=== PATIENT | male | born 1945 | race Caucasian/White ===

== ENCOUNTER → 2016-08-08 | Outpatient (CLI) | payer MEDICARE, OTHER ==
[~2016-08-08] MED LIST: ALDACTONE25 MG PO; ASPIRIN EC81 MG PO; AUGMENTIN 875-1 EACH PO; COREG12.5 MG PO; GLYBURIDE5 MG PO; JANUMET 50-5001 EACH PO; LASIX20 M1 PO; LEVEMIR FL100 UNIT/1 SUB-Q; LOPRESSOR25 MG PO; NEURONTIN100 MG PO; NORVASC5 MG PO; NOVOLOG FL100 UNIT/1 SUB-Q; PRINIVIL (ZESTR20 MG PO; PROTONIX40 MG PO; THERAGRAN-M1 TAB PO; TYLENOL325 MG PO; VITAMIN B-121000 MCG PO; ZOCOR40 MG PO
== END | disposition disaster alternative care site (69) ==
LOC: LFPA 16:35
DX: R06.02 Shortness of breath (principal)

== ENCOUNTER → 2016-08-09 | Outpatient (CLI) | payer MEDICARE, OTHER ==
--- NOTE | ~2016-08-09 | ECHO ---
Transthoracic Echocardiography Report (TTE) Demographics Patient Name NAINA DAMIAN Date of Study 08/09/2016 Patient Number [id number] Visit Number [id number] Date of 1945 Room Number Gender Male Number Age 70 year(s) Referring Erica Torres Family Development Extension Specialist Tank Gamble Physician MD Aziza Lemus MD Physician Interpreting Christa Kumar Radioisotope Technologist Physician A Supervising Ordering Aziza Lemus MD, MD/P Physician Nurse Stress Correctional Case Records Supervisor Conclusions Contractility Score Summary Global Left Ventricular Hypokinesis was noted. Summary Technically difficult exam. The estimated left ventricular ejection fraction is 40-45%. The left ventricle is normal in size . Mild concentric left ventricular hypertrophy. Restrictive filling pattern (severe diastolic dysfunction). Mildly dilated right ventricle. The aortic valve is not well visualized. There is mild aortic stenosis by the Continuity Equation. The peak velocity is 2.06 m/s, the mean gradient is 9 mmHg, and the valve area based on the continuity equation is 1.26 cm2, stroke volume index is 19 ml/m2. Large pleural effusion present. Procedure Type of Study TTE procedure:2D Echocardiogram, M-Mode, Doppler , Color Doppler. Procedure Date Date: 08/09/2016 Start: 12:14 PM Study Location: Echo Lab Technical Quality: Limited visualization due to body habitus. Indications:Heart Murmur and CHF. Appropriate Use Criteria: 9 Patient Status: Routine HR: 98 bpm BP: 193/91 mmHg M-Mode/2D Measurements LV Diastolic Dimension: 5.59 cm LV Systolic Dimension: 4.32 cm LV Septum Diastolic: 1.21 cm LV PW Diastolic: 1.19 cm AO Root Dimension: 2.8 cm Cardiac Output: 4.77 l/min LA Dimension: 4 cm LVOT: 2 cm LVOT VTI: 15.5 cm RV Base: 3.08 cm LV Stroke volume: 48.67 ml RV Length: 7.67 cm TAPSE: 2.32 cm TDI-S': 9.76 cm/s Doppler Measurements AV Peak Velocity: 2.01 m/s MV Peak E-Wave: 1.45 m/s AV Peak Gradient: 16.16 mmHg AV Mean Gradient: 9 mmHg MV Mean Gradient: 5 mmHg TR Velocity:1.92 m/s Estimated PASP: 24.75 mmHg TR Gradient:14.75 mmHg Estimated RAP:10 mmHg Estimated RVSP: 25 mmHg E' Lateral Velocity: 0.13 m/s Findings Left Ventricle The left ventricle is normal in size . Mild concentric left ventricular hypertrophy. Restrictive filling pattern (severe diastolic dysfunction). Right Ventricle Mildly dilated right ventricle. Left Atrium Normal left atrial size. Right Atrium Normal right atrial size. Mitral Valve Trivial mitral regurgitation by color Doppler. Mild mitral annular calcification. Aortic Valve The aortic valve is not well visualized. There is mild aortic stenosis by the Continuity Equation. The peak velocity is 2.06 m/s, the mean gradient is 9 mmHg, and the valve area based on the continuity equation is 1.26 cm2, stroke volume index is 19 ml/m2. Tricuspid Valve Trivial tricuspid regurgitation by color Doppler. Pulmonic Valve The pulmonic valve is not well visualized. Pericardial Effusion No evidence of pericardial effusion. Miscellaneous The ascending aorta appears borderline dilated. The maximum diameter measures 3.4 cm. Pleural Effusion Large pleural effusion present. Contractility Score LV regional wall motion:(0-Non visualized 1-Normal 2-Hypokinesis 3-Akinesis 4-Dyskinesis 5-Aneurysm) Signature dtt: Elizabeth Goodwin dtd: 08/09/16 1214 Physician Self Edit
== END | disposition disaster alternative care site (69) ==
LOC: GCAR 11:50
DX: R06.02 Shortness of breath (principal); I51.7 Cardiomegaly; J90 Pleural effusion, not elsewhere classified

== ENCOUNTER 2016-10-04 08:19 | Inpatient (IN) | payer MEDICARE, OTHER ==
[~2016-10-04] VITALS: Ht 180.3 cm; Wt 143.4 kg
--- NOTE | ~2016-10-04 | CON ---
PATIENT'S NAME: NAINA DAMIAN [facility] AGE: 70 Y [address] ROOM: [place] [address] LOCATION: GPCU ADMIT DATE: 10/04/2016 Consultation DISCHARGE DATE: FAMILY PHYSICIAN: Rogelio Maldonado MD ATTENDING PHYSICIAN: CIRA ARRINGTON DATE OF CONSULTATION: 10/04/2016 REASON FOR CARDIOLOGY CONSULT: Bradycardia and congestive heart failure. HISTORY OF PRESENT ILLNESS: This is a 70-year-old male, with complaints of shortness of breath over the past 3 months, that had been slowly increasing in intensity. He also has complaints of cough with a productive mucus and to the point of intensity of cough that causes him to vomit. He also has noted redness and warmth as well as cellulitis of the right lower leg. He denies any sharp chest pain or palpitations. Last night, he did have complaints of presyncope and blurred vision while in the seated position. He also has a history of postural nocturnal dyspnea as well as orthopnea. He underwent a previous echocardiogram which showed a combined congestive heart failure with an ejection fraction of 40-45%. Overall at this time, he is sitting up quite high in bed to assist with breathing, but otherwise appears in no other acute distress and has no real complaints. He states "this is the first time I have been in the hospital ever." PAST MEDICAL HISTORY: 1. Hypertension. 2. Hypercholesterolemia. 3. Chronic systolic and diastolic congestive heart failure. 4. Diabetes mellitus type 2, poorly controlled. 5. Obesity. 6. History of ulceration to his right great toe. 7. Right lower extremity cellulitis over the last few months. 8. Osteoarthritis. 9. Fibromyalgia. PAST SURGICAL HISTORY: Bilateral cataract removal. FAMILY HISTORY: He has an extensive history of both his mother and his father having heart disease and ultimately expiring due to congestive heart failure. His mother also had a history of diabetes mellitus. He has a sister who due to pancreatic cancer and another sister who due to breast cancer. PATIENT'S NAME: NAINA DAMIAN [facility] AGE: 70 Y [address] ROOM: [place] [address] LOCATION: GPCU ADMIT DATE: 10/04/2016 Consultation DISCHARGE DATE: FAMILY PHYSICIAN: Rogelio Maldonado MD ATTENDING PHYSICIAN: CIRA ARRINGTON SOCIAL HISTORY: The patient is a former cigarette smoker, he smoked 1 pack per day for a total of 25 years. He quit smoking in 1969. He denies alcohol or illicit drug use. CURRENT MEDICATIONS: 1. Meropenem 500 mg IV every 8 hours. 2. Vancomycin 2 g IV x1 now. 3. Neurontin 100 mg p.o. daily in the evening. 4. Vitamin B12 1000 mcg p.o. daily. 5. Zocor 40 mg p.o. daily. 6. Heparin 5000 units subcutaneously 3 times daily. 7. Levemir 50 units subcutaneously daily in the evening. 8. NovoLog subcutaneously on a mild sliding scale per a.c. and h.s. Accu- Cheks. MEDICATION ALLERGIES: No known medication allergies. REVIEW OF SYSTEMS: Pertinent positive review of systems listed in the HPI. All other review of systems evaluated and negative. DIAGNOSTICS: CMS evaluation shows sodium of 137, potassium 4.5, BUN of 49, creatinine 2.0, and a glucose of 360. Cardiac enzyme evaluation shows a CK-MB of 1.2, troponin I of less than 0.04. He has a proBNP of 2298 and a D-dimer of 4.49. CBC evaluation shows white blood cell count of 23, hemoglobin of 11.1, hematocrit 34, and platelet of 210. PT/INR shows 10.8 and 1.03 respectively. He has a procalcitonin of 0.54 and a lactate of 4.5. PHYSICAL EXAMINATION: VITAL SIGNS: Temperature 98.2, pulse 40, respirations 18, blood pressure 130/62 with a recheck of 170/70, and O2 saturation 95% on 2 L nasal cannula. The patient weighs 42.6 kg. SKIN: [place], warm, and dry, but once again does have noted redness and warmth to right lower extremity cellulitis. EYES: Sclerae clear. No xanthelasmas. ENT: Oral mucosa is pink and moist. No jugular venous distention or carotid bruits. CHEST: Respirations are even and slightly labored. Lung sounds show fine crackles throughout lung dang as well as a productive cough. HEART: Irregular rate and rhythm. Does have a 2/6 systolic murmur. ABDOMEN: Soft, nontender, and obese. MUSCULOSKELETAL: Gait is normal. PATIENT'S NAME: NAINA DAMIAN [facility] AGE: 70 Y [address] ROOM: [address] [place] [address] LOCATION: GPCU ADMIT DATE: 10/04/2016 Consultation DISCHARGE DATE: FAMILY PHYSICIAN: Rogelio Maldonado MD ATTENDING PHYSICIAN: CIRA ARRINGTON EXTREMITIES: Peripheral pulses palpable. No clubbing or cyanosis noted. Does have mild to moderate lower extremity edema present with the right side being greater than the left and noted right lower extremity cellulitis and redness. PSYCHIATRIC: Alert and oriented. Mood and affect are appropriate. IMPRESSION AND PLAN: Per Dr. Iza Ayala: 1. Atrial tachycardia with variable block. Heart rate currently in the 30s to 40s on telemetry. There appears to be high grade AV block. Underlying rhythm could be sinus tachy with advanced AV block. 2. Acute on chronic combined congestive heart failure. 3. Right lower extremity cellulitis. 4. Severe sepsis. 5. Renal insufficiency. 6. Diabetes mellitus, poorly controlled. 7. Hypertension. The patient shows no symptoms currently of dizziness, shortness of breath, or chest pain. He is hemodynamically stable and has no symptoms at this time for a pacemaker. We will continue to monitor him closely now that he is off his beta-bird, but he may need a pacemaker in the future. Concerned about his vomiting, shortness of breath, and increased white blood cell count. His volume status is difficult to assess, but his chest x-ray does show some minimal pleural effusions, we will review records. Given his presentation of sepsis, we will hold off on any therapies at this time if possible. We will continue to monitor, evaluate, and treat as appropriate. We will hold his lisinopril, Aldactone, and Lasix, as well as continue to monitor cardiac enzymes. Thank you for this consult. Thank you for allowing [facility] to interact in the care of this patient. KELLEN CASTELLON APRN FOR MD JUAN MANUEL NICOLE/nathalia /[id number] d: 10/04/16 2336 t: 10/12/16 1303, CONSULTATION REPORT
--- NOTE | ~2016-10-04 | CON ---
PATIENT'S NAME: NAINA DAMIAN [facility] AGE: 70 Y [address] ROOM: [address] [address] LOCATION: GPCU ADMIT DATE: 10/04/2016 Consultation DISCHARGE DATE: FAMILY PHYSICIAN: Rogelio Maldonado MD ATTENDING PHYSICIAN: CIRA ARRINGTON DATE OF CONSULTATION: 10/08/2016 REFERRING PHYSICIAN: Sandra Garcia MD REASON FOR CONSULTATION: Hematuria plus complex renal cysts. HISTORY OF PRESENT ILLNESS: This is a 70-year-old gentleman admitted with multiple issues. He is found to have probable Staph sepsis based on blood cultures. He has a pneumonia based on x-rays. He has cardiac issues. He is morbidly obese. When he was admitted, catheter was placed. He was started on subcu heparin. He had blood in his urine. Importantly, he had a UA on 10/05/2016 which revealed 0 to 2 red cells. After the above, he developed more significant hematuria. It is now clearing. He also has an acute kidney injury. Dr. Maldonado had a creatinine of 1.0 with a GFR greater than 60 two months ago. With all of the acute issues, he has bumped his creatinine up to 2. It is slowly coming back down to baseline as his other issues are handled. As part of that, he had a CT scan. It was noncontrast because of his renal insufficiency. He has a complex cyst. Considering his other issues, I think these are clinically insignificant at this point. I did discuss followup imaging in six months with Naina and his . He has underlying BPH. I would categorize his premorbid symptoms as moderate. However, they are not bothersome enough to Naina to take any medication. He does not want to start any medical management. After review and discussion with Naina and his , I do not think any of these issues are clinically significant at this time. I will be happy to follow up if need be, but his hematuria is iatrogenic and his complex cysts are insignificant at this point with nothing further other than followup imaging as above and his BPH is not particularly bothersome to him. IMPRESSION: 1. Hematuria-likely secondary to Gordon catheterization plus heparin plus underlying benign prostatic hypertrophy. 2. Complex renal cysts with recommendation for followup imaging. 3. Underlying benign prostatic hypertrophy, bladder obstruction. PATIENT'S NAME: NAINA DAMIAN [facility] AGE: 70 Y [address] ROOM: [place] [address] LOCATION: [facility] ADMIT DATE: 10/04/2016 Consultation DISCHARGE DATE: FAMILY PHYSICIAN: Rogelio Maldonado MD ATTENDING PHYSICIAN: CIRA ARRINGTON 4. Acute kidney injury-multifactorial and resolving with supportive care. Thank you for the consultation. SANDRA GARCIA MD SFWinnie/nathalia /[id number] d: 10/09/16 0015 t: 10/16/16 1111, CONSULTATION REPORT
--- NOTE | ~2016-10-04 | ER ---
PATIENT'S NAME: NAINA DAMIAN [facility] AGE: 70 Y [address] ROOM: [place] [address] LOCATION: GPCU ADMIT DATE: 10/04/2016 ER/Outpatient Report DISCHARGE DATE: FAMILY PHYSICIAN: Rogelio Maldonado MD ATTENDING PHYSICIAN: CIRA LIVE CHIEF COMPLAINT: Shortness of breath and chills. HISTORY OF PRESENT ILLNESS: The patient states that he has not been feeling well for the last several days. He started taking some medication for heart failure in the middle of July and feels like he has been doing relatively well since then. He notes that he has not felt feverish, but he has been very, very cold last night. He denies any other major concerns at this time and otherwise, he states that he feels pretty decent. He does have a known issue of cellulitis on the right lower extremity and feels like it is progressing a little bit more today than he usually would. He is very adamant that he does not want any surgeries of any sort done, but he would be open to any endovascular procedures if something were required from that standpoint. He is very hesitant to start any new medications at this time. The patient has had 3 episodes of vomiting this morning. The patient also states he would have stayed home this morning if it was not for his family that forced him to come in. PAST MEDICAL HISTORY: All been reviewed by me and documented on the record. SOCIAL HISTORY: All been reviewed by me and documented on the record. MEDICATIONS: All been reviewed by me and documented on the record. ALLERGIES: ALL BEEN REVIEWED BY ME AND DOCUMENTED ON THE RECORD. REVIEW OF SYSTEMS: All systems were reviewed and negative except as noted in the HPI. PHYSICAL EXAMINATION: VITAL SIGNS: Blood pressure 150/65, pulse is 65, respiratory rate is 18, temperature is 102.0, SpO2 is 90% on room air. GENERAL: Age-appropriate male ill appearance in very mild distress, breathing rapidly, but no outward signs of pain and no struggling to breathe. NEUROLOGIC: The patient is awake, he is alert, he moves all extremities PATIENT'S NAME: NAINA DAMIAN [facility] AGE: 70 Y [address] ROOM: [place] [address] LOCATION: GPCU ADMIT DATE: 10/04/2016 ER/Outpatient Report DISCHARGE DATE: FAMILY PHYSICIAN: Rogelio Maldonado MD ATTENDING PHYSICIAN: CIRA LIVE. There is no obvious asymmetry on his exam. HEENT: Normocephalic, atraumatic. The eyes are PERRL. The oropharynx is clear. NECK: Supple. Trachea is midline. CHEST/HEART: Regular rate and rhythm with no obvious murmurs. LUNGS: Coarse bilateral, but worse at the bases. No rhonchi, wheezes, or rales. ABDOMEN: Obese, soft, nontender, and nondistended. No rebound or guarding. BACK: Nontender to palpation throughout. No CVA tenderness. EXTREMITIES: Notable for edema, right greater than left to the knee. SKIN: Warm, dry, and intact with an erythema, poorly confluent rash to the right lower extremity that extends about to the midcalf and is poorly demarcated. There is underlying skin discoloration from prior infections. LABORATORY DATA AND X-RAYS: Chest x-ray with likely right middle lobe pneumonia with loss of the cardiac silhouette and the diaphragm on the anteromedial aspects. The labs are notable for creatinine of 2.0, GFR of 33, and an elevated AST. Glucose is also elevated. He has a slight anion gap acidosis of 15. CK-MB and troponin are within appropriate limits. CRP is 4.7. ProBNP is 2298. Procalcitonin is 0.54. WBC is 23,000, 90.7% neutrophils. Hemoglobin 11.1, and platelets of 210. INR is 1. Lactate is 4.5. D-dimer is 4.49. EKG shows left-bundle branch block. Blood cultures are pending. IMPRESSION: 1. Septic shock by lab values without other evidence of hypoperfusion with a lactate greater than 4 with a presumed pneumonia and right lower extremity cellulitis. 2. Right middle lobe pneumonia, likely. 3. Right lower extremity cellulitis. 4. Heart failure exacerbation with concomitant pulmonary edema and volume overload. 5. Acute kidney injury. Baseline creatinine 1.0 and GFR greater than 60. 6. Leukocytosis 23,000. 7. Elevated D-dimer, unable to obtain studies. Pulmonary embolism less likely in the current setting. EMERGENCY DEPARTMENT COURSE: The patient was seen and evaluated. Lab workup was initiated. Initial patient contact time was about 08:23. Upon receipt of the patient's white count and his elevated lactate level at 9:00 a.m., it was recommended to initiate antibiotics. The patient wished to hold his antibiotics. He wanted definitive proof of infection. Based on the review of the chest x-ray and the other presenting situation with injury to the kidneys, he eventually acquiesced to antibiotics approximately at 10:00 a.m. in addition to volume PATIENT'S NAME: NAINA DAMIAN [facility] AGE: 70 Y [address] ROOM: [address] [address] LOCATION: GPCU ADMIT DATE: 10/04/2016 ER/Outpatient Report DISCHARGE DATE: FAMILY PHYSICIAN: Rogelio Maldonado MD ATTENDING PHYSICIAN: CIRA LIVE. The patient does have concomitant heart failure exacerbation and thus a 30 mL/kilo bolus was not initiated; however, he was given a liter of fluids, re-evaluated, and found to have no change in his status and a second liter was initiated. He otherwise remained okay. His blood pressure and heart rate remained in the basically normal range. He had no hypotension or other hemodynamic instability in the emergency department. I discussed the case with hospitalist, Dr. Live, and the patient will be admitted to the PCU for further evaluation and treatment. CRITICAL CARE TIME: 51 minutes. Critical care time is warranted for septic shock by definition. Critical care time consisted of multiple patient evaluations ordering and interpreting chest x-ray, EKG, and multiple labs; directing judicious fluid resuscitation in the setting of septic shock; consulting hospitalist provider; ordering antibiotics; and critical care time is warranted to prevent rapid decompensation in the setting of likely septic shock. MD RADHA CARIAS/nathalia /[id number] d: 10/05/16 0827 t: 10/16/16 1732, OUTPATIENT REPORT
--- NOTE | ~2016-10-04 | HP ---
PATIENT'S NAME: NAINA DAMIAN [facility] AGE: 70 Y [address] ROOM: [place] [address] LOCATION: GPCU ADMIT DATE: 10/04/2016 History & Physical DISCHARGE DATE: FAMILY PHYSICIAN: Rogelio Maldonado MD ATTENDING PHYSICIAN: CIRA ARRINGTON DATE OF SERVICE: PRINCIPAL DIAGNOSES: 1. Severe sepsis. 2. Third-degree atrioventricular block. HISTORY OF PRESENT ILLNESS: This is a 70-year-old male with history of systolic and diastolic CHF, hypertension, diabetes, morbid obesity, who presented earlier today with complaints of lower extremity pain on the left side, erythema, as well as persistent cough and shortness of breath. The patient states that symptoms started last night, going in to this morning to the point where the leg pain and the cough have been persistent, and he decided to come to the emergency room. The patient reports a burning type pain in his left lower leg, and also mentions subjective fever and chills, that is the feeling since onset of symptoms as well. The patient describes his cough as productive, producing yellow greenish sputum as well. The patient, however, denied any true chest pain, palpitations, dizziness, or lightheadedness. The patient also denies any abdominal pain, nausea, vomiting, diarrhea, or constipation. The patient was noted to be bradycardiac shortly after transfer to the floor from the emergency room and does appear to be in third-degree AV block, and he is awaiting Cardiology evaluation. The patient continues to be asymptomatic from that standpoint with vital signs stable. PAST MEDICAL HISTORY: Systolic and diastolic CHF, morbid obesity, hypertension, diabetes. FAMILY HISTORY: The patient has history of heart disease in both his parents. SOCIAL HISTORY: Remote history of smoking but denies any heavy alcohol use or drugs. REVIEW OF SYSTEMS: All systems have been reviewed and were negative except as described in the HPI. PHYSICAL EXAMINATION: VITAL SIGNS: Afebrile, heart rate 40s, blood pressure 137/82. PATIENT'S NAME: NAINA DAMIAN [facility] AGE: 70 Y [address] ROOM: [place] [address] LOCATION: GPCU ADMIT DATE: 10/04/2016 History & Physical DISCHARGE DATE: FAMILY PHYSICIAN: Rogelio Maldonado MD ATTENDING PHYSICIAN: CIRA ARRINGTON GENERAL: The patient is awake, alert, and oriented x3, in no apparent distress, morbid obesity. HEENT: Moist mucous membranes. No scleral icterus or conjunctival pallor noted. SKIN: With erythema of the left lower leg. It is warm to touch. HEART: Bradycardiac, regular, S1, S2. CHEST: Diminished breath sounds diffusely but no wheeze, rhonchi, or rales noted. ABDOMEN: Distended but soft, nontender. Positive bowel sounds. NEUROLOGIC: Grossly nonfocal. MUSCULOSKELETAL: No joint pain, stiffness, or redness noted. No muscular pain noted either. LABORATORY DATA: Laboratory results reviewed. Significant ones include creatinine of 2.0, white blood cell count of 23,000. ASSESSMENT AND PLAN: 1. Severe sepsis secondary to cellulitis of the lower extremity as well as possible pneumonia. We will treat with a sepsis protocol including gentle IV fluid noting the patient's congestive heart failure and broad- spectrum antibiotics. We will await for blood culture results and tailor antibiotics as well. 2. Third-degree atrioventricular block. The patient is asymptomatic from this standpoint and to have a consult to cardiology, and since the blood pressure is stable, and he is asymptomatic, we will continue his home beta bird therapy and observe, and in the event if he does need a pacemaker, this will be done as soon as we have some results from blood cultures. It is not advisable to put hardware in the setting of sepsis like this. 3. Left lower leg cellulitis. We will treat him with antibiotics and continue to monitor. 4. Left lower extremity swelling. The patient has to be ruled out for deep venous thrombosis, and we will get a venous Doppler scan. 5. Acute respiratory failure with hypoxia. The patient is requiring 3 L of oxygen at this point. He does not use oxygen at home. In addition to treating for possible pneumonia, we will also rule out pulmonary embolism, and this would be done with a V/Q scan once the patient is stabilized from the heart rate standpoint. 6. Acute kidney injury. This is likely prerenal in the setting of sepsis. Creatinine is 2.0. Baseline appears to be in the normal range. We will continue management with gentle IV fluids, and we will keep an eye on kidney function, urine output. 7. Essential hypertension. We will continue to monitor in the setting of sepsis. PATIENT'S NAME: NAINA DAMIAN [facility] AGE: 70 Y [address] ROOM: [place] [address] [facility] ADMIT DATE: 10/04/2016 History & Physical DISCHARGE DATE: FAMILY PHYSICIAN: Rogelio Maldonado MD ATTENDING PHYSICIAN: CIRA ARRINGTON 8. Type 2 diabetes. We will treat with sliding scale insulin and continue his home medications except glipizide. 9. Chronic systolic and diastolic congestive heart failure. The patient appears compensated from this standpoint. EF on last echo was 40% to 45%. We will continue with cardiac medications. 10. Morbid obesity. 11. Deep venous thrombosis prophylaxis. We will use heparin subcu t.i.d. CIRA ARRINGTON MD BG/modl /[id number] D: [id number] T: [id number] HISTORY & PHYSICAL
--- NOTE | ~2016-10-04 | CON ---
PATIENT'S NAME: NAINA DAMIAN [facility] AGE: 70 Y [address] ROOM: [address] [address] LOCATION: GPCU ADMIT DATE: 10/04/2016 Consultation DISCHARGE DATE: FAMILY PHYSICIAN: Rogelio Maldonado MD ATTENDING PHYSICIAN: CIRA ARRINGTON DATE OF CONSULTATION: 10/06/2016 REFERRING PHYSICIAN: Devon Bland MD [facility] Nephrology Consultation REASON FOR CONSULTATION: Acute kidney injury. HISTORY OF PRESENT ILLNESS: This is a 70-year-old male patient, who presented to the emergency room after not feeling well over the last several days. The patient did report that he had started taking some Lasix for increase in lower extremity edema in July and has been feeling like he has not been doing quite well since then. The patient does note that he had right lower extremity cellulitis and has been taking oral antibiotics prior to his arrival. The patient reports his symptoms started last night and have continued this morning, when he began having more leg pain and cough that was persistent. The patient was admitted and transferred to the floor and was noted to have episodes of bradycardia in the 30s at that time. He appeared at that time to be in third-degree AV block and is awaiting Cardiology evaluation. On admission, the patient's creatinine was 2.6. Baseline creatinine reportedly is 1.0. Therefore, due to his acute kidney injury on chronic kidney disease with creatinine elevation to 2.6 from baseline of 1.0, Dr. Allen and Nephrology has been asked to follow the patient. PAST MEDICAL HISTORY: As listed above includin. History of systolic and diastolic congestive heart failure. 2. Hypertension. 3. Diabetes. 4. Morbid obesity. 5. Right foot cellulitis. 6. Hypercholesterolemia. 7. History of ulceration of his right great toe. 8. Osteoarthritis. 9. Fibromyalgia. 10. Diabetic neuropathy. PAST SURGICAL HISTORY: As listed above including: Bilateral cataract removal. ALLERGIES: NO KNOWN DRUG ALLERGIES. CURRENT HOME MEDICATIONS: Include: 1. Vitamin B12, 1000 mcg p.o. daily. 2. Lasix 20 mg daily. 3. Gabapentin 100 mg p.o. at bedtime. 4. Glyburide 5 mg p.o. b.i.d. 5. Levemir 50 units subcutaneous at bedtime. 6. Prinivil 20 mg p.o. daily. 7. Metoprolol tartrate 25 mg p.o. b.i.d. 8. Multivitamin 1 tablet daily. 9. Simvastatin 40 mg daily. 10. Janumet 1 tablet p.o. b.i.d. 11. Spironolactone 25 mg p.o. daily.PATIENT'S NAME: NAINA DAMIAN [facility] AGE: 70 Y [address] ROOM: [address] [address] [facility] ADMIT DATE: 10/04/2016 Consultation DISCHARGE DATE: FAMILY PHYSICIAN: Rogelio Maldonado MD ATTENDING PHYSICIAN: CIRA ARRINGTON SOCIAL HISTORY: The patient does live in [place] and is a former cigarette smoker. He did smoke approximately one pack a day for a total of 25 years. He quit in 1969. Denies any illicit drug use or alcohol use. He does live at home with his . FAMILY HISTORY: Significant for coronary artery disease in his mother and his father. His mother also had diabetes mellitus. His sister had a history of pancreatic cancer and another sister had a history of breast cancer. There is no history of renal disease or dialysis. REVIEW OF SYSTEMS: GENERAL: The patient complains of fatigue. Denies any fever or chills. HEENT: Eyes; no double vision. Positive for blurred vision, with bradycardia. Nose; no epistaxis or rhinorrhea. Mouth; no gingival bleeding. Throat; no sore throat, hoarseness, but does have a productive cough. CARDIOVASCULAR: Complains of post nocturnal dyspnea as well as orthopnea. Complains of dyspnea on exertion as well as shortness of breath. Denies any current chest pain. Denies any syncope. GASTROINTESTINAL: Does deny any nausea, vomiting, or diarrhea. GENITOURINARY: Denies a history of frequency or urgency. The patient does report increased urinary output since starting Lasix in July. Denies any hematuria. Does report he did have some concern for urinary retention prior to the Gordon catheter placement. HEMATOLOGICAL: Denies any bruising or easy bleeding. IMMUNOLOGICAL: Denies any recent infections other than what is listed in the HPI. PSYCHIATRIC: Denies depression or anxiety. MUSCULOSKELETAL: Does have a history of fibromyalgia. ENDOCRINE: Does have a history of diabetes mellitus, is on insulin as well as oral anti-hypoglycemics. LABORATORY DATA: WBCs are 13.0, hemoglobin 10.6, hematocrit 32.8, and platelets are 180,000. Glucose 142, BUN is 48, creatinine 1.8, sodium 144, potassium 4.0, chloride is 106, CO2 is 26, calcium is 8.0, and albumin is 2.6. AST is pending, ALT is pending, and alkaline phosphatase is pending. Urinalysis shows 30 protein, 10 blood, 2-5 wbc's, 0-2 rbc's, rare epithelial cells, moderate bacteria, 1+ amorphous crystals, 1+ mucus, and 0-2 hyaline casts. TSH is 0.547, procalcitonin is 5.72. IMAGING STUDIES: 1. V/Q scan shows low probability for pulmonary embolic disease. 2. CT abdomen and pelvis without contrast notes:. a. Bilateral renal cysts with mild complex cyst at the mid left kidney. b. Hazy increased attenuation adjacent to the gallbladder of uncertain significance. Gallbladder is not distended. There is concern for acute cholecystitis, additional evaluation with ultrasound may be helpful. c. Small to moderate size bilateral pleural effusions. d. Diverticulosis with no evidence of diverticulitis. e. Dense vascular calcifications.PATIENT'S NAME: NAINA DAMIAN [facility] AGE: 70 Y [address] ROOM: [address] [address] LOCATION: GPCU ADMIT DATE: 10/04/2016 Consultation DISCHARGE DATE: FAMILY PHYSICIAN: Rogelio Maldonado MD ATTENDING PHYSICIAN: CIRA ARRINGTON PHYSICAL EXAMINATION: VITAL SIGNS: Blood pressure is 156/66, pulse is 110, respirations 20, saturations are 93% on 2 L nasal cannula, and temperature is 98.1. GENERAL: On exam, this is an obese, white male who appears his approximate stated age, is in no acute distress. HEENT: Head; normocephalic and atraumatic. Eyes; pupils are equal and react briskly to light and accommodation. EOMs are intact. Nose is midline. Mouth; no gingival bleeding. Throat is without lymphadenopathy, carotid bruits, or JVD. RESPIRATORY: Lung sounds are diminished in the bases bilaterally. The patient is on 2 L nasal cannula with crackles noted, scattered throughout all lung dang. CARDIOVASCULAR: Tachycardic rate with an apical rate of 111 beats per minute. He does have a slight grade 1-2 systolic ejection murmur heard best at the right second intercostal space. ABDOMEN: Obese, nontender. Soft. EXTREMITIES: 1 to 2+ lower extremity edema greater in the right than in the left. GENITOURINARY: He does have a Gordon catheter with clear yellow urine draining at the time of exam. NEUROLOGIC: Cranial nerves 2 through 12 are grossly intact. ASSESSMENT AND PLAN: 1. Acute kidney injury on chronic kidney disease, stage 3. This is likely a prerenal etiology secondary to hemodynamic instability with bradycardia in the 30s to 40s. At this time, we do recommend holding all beta blockers as they are eliminated through the kidneys. We will see if this helps to improve the patient's heart rates. Dr. Couch has been consulted directly for the patient's bradycardia. Further recommendations per Cardiology. 2. Acute on chronic combined congestive heart failure. At this time, we will hold off on Lasix and monitor the patient's I's and O's strictly. We will place him on daily weights and monitor his fluid volume status accordingly. 3. Right lower extremity cellulitis. We will avoid all nephrotoxic agents in treating his cellulitis. 4. Diabetes mellitus. We will utilize sliding scale insulin while hospitalized. 5. Hypertension. Blood pressures are stable. Continue to follow closely. Avoid salt. We will hold his lisinopril and Aldactone that he also took prior to his arrival. 6. Complex cyst noted on renal ultrasound. We will await Urology consultation in the next 1 to 2 days pending the patient's progress. This patient has been seen and assessed by Dr. Allen. His care is being conducted in consultation with Dr. Allen as well as me. We will plan further recommendations as they are forthcoming. EVERARDO NULL DNP, HOME CARE PROVIDER FOR JIMMY ALLEN MD ENS/modl /[id number] d: 10/08/162056 t: 10/18/161623, CONSULTATION REPORT
--- NOTE | ~2016-10-04 | DS ---
PATIENT'S NAME: NAINA DAMIAN [facility] AGE: 70 Y [address] ROOM: [place] [address] LOCATION: GPCU ADMIT DATE: 10/04/2016 Discharge Summary DISCHARGE DATE: 10/10/2016 FAMILY PHYSICIAN: Rogelio Maldonado MD ATTENDING PHYSICIAN: Cira Arrington PRINCIPAL DIAGNOSES: 1. Sepsis secondary to group B Strep. 2. Third degree AV block. 3. Right lower extremity cellulitis. 4. Acute kidney injury. 5. Systolic congestive heart failure. 6. Diastolic congestive heart failure. 7. Type 2 diabetes. 8. Essential hypertension. BRIEF HOSPITAL COURSE: Please refer to the admitting history and physical for detailed history of initial presentation. SUMMARY: This is a 70-year-old male who was initially admitted with right lower extremity swelling and redness, with a high white count, fever and chills; admitted for secondary to the right lower cellulitis. Shortly after admission, the patient was noted to be bradycardic on monitor and tolerated EKG and strips confirmed that this was perhaps a third-degree AV block. The patient continued to be asymptomatic throughout all of that as well. Cardiology service was consulted and the patient was evaluated and conservative management with close monitoring was opted and the patient converted to a sinus rhythm during hospitalization. The patient is to continue treatment with antibiotics for cellulitis and later it was found to have Group B Strep and blood cultures. The patient continued IV antibiotics and showed significant improvement in that regard. The patient also continued to stay in sinus rhythm throughout the rest of his hospital stay. His medications were adjusted and at this point on low-dose Coreg and antibiotic early he is on Augmentin. The patient is to continue low-dose Coreg as well as finish a two week course of Augmentin upon discharge. The patient is also seen by plastic surgeon and extensive education as far as how to manage his diabetes was given to him as well. PHYSICAL EXAMINATION: GENERAL: The patient today during my visitation is awake, alert, and oriented x3, in no acute distress. CHEST: Clear to auscultation bilaterally. HEART: S1, S2; regular rate and rhythm. ABDOMEN: Soft, nontender, nondistended. EXTREMITIES: Without edema. PATIENT'S NAME: NAINA DAMIAN [facility] AGE: 70 Y [address] ROOM: [place] [address] LOCATION: GPCU ADMIT DATE: 10/04/2016 Discharge Summary DISCHARGE DATE: 10/10/2016 FAMILY PHYSICIAN: Rogelio Maldonado MD ATTENDING PHYSICIAN: Cira Arrington MEDICATIONS: Per MAR. DISPOSITION: The patient is to follow up with Cardiology in five weeks and he is to be discharged with a 30 day event monitor. He is also to see PCP in one week and Nephrology in 2 weeks. Greater than 30 minutes were spent in his discharge planning and facilitating. CIRA ARRINGTON MD BG/modl /[id number] d: 10/11/16 1035 t: 10/29/16 1524, DISCHARGE SUMMARY
--- NOTE | ~2016-10-04 | ENPV ---
Vascular Lower Extremities DVT Study Procedure Demographics Patient Name NAINA DAMIAN Date of Study 10/04/2016 Patient Number [id number] Gender Male Date of 1945 Age 70 Visit Number [id number] Height Accession Number [id number] Weight Room Number G6308 BSA BMI Referring [facility] Interpreting William Peralta MD Physician Sandra Physician Physician Ordering Physician Abimbola Flores [employer] Maker Tam Ramos RVT Conclusions Summary Normal venous duplex examination of the legs bilaterally with normal venous Doppler signals noted throughout. No evidence of thrombophlebitis is noted bilaterally in the deep and superficial veins of the legs. Small calf thrombi cannot be excluded. Procedure Type of Study: Veins:Lower Extremities DVT Study, Lower Extremity Right. Indications for Study:Swelling. Appropriate Use Criteria:9 Patient Status:Routine. Study Location:Inpatient Portable. Technical Quality:Adequate visualization. Velocities are measured in cm/s ; Diameters are measured in cm Right Lower Extremities DVT Study Measurements Right 2D and Doppler Measurements + + + + +------+------+ + !Location !Visualized!Compressibility!Thrombosis!Signal!Reflux!Reflux ! ! ! ! ! ! ! !(sec) ! + + + + +------+------+ + !GSV Thigh !Yes !Yes !None !Phasic!No ! ! + + + + +------+------+ + !Common !Yes !Yes !None !Phasic!No ! ! !Femoral ! ! ! ! ! ! ! + + + + +------+------+ + !Prox !Yes !Yes !None !Phasic!No ! ! !Femoral ! ! ! ! ! ! ! + + + + +------+------+ + !Mid Femoral!Yes !Yes !None !Phasic!No ! ! + + + + +------+------+ + !Dist !Yes !Yes !None !Phasic!No ! ! !Femoral ! ! ! ! ! ! ! + + + + +------+------+ + !Popliteal !Yes !Yes !None !Phasic!No ! ! + + + + +------+------+ + !Gastroc !Yes !Yes !None !Phasic!No ! ! + + + + +------+------+ + !PTV !Yes !Yes !None !Phasic!No ! ! + + + + +------+------+ + !Peroneal !Yes !Yes !None !Phasic!No ! ! + + + + +------+------+ + Left Lower Extremities DVT Study Measurements Left 2D and Doppler Measurements + + + + +------+------+ + !Location !Visualized!Compressibility!Thrombosis!Signal!Reflux!Reflux ! ! ! ! ! ! ! !(sec) ! + + + + +------+------+ + !Common !Yes !Yes !None ! ! ! ! !Femoral ! ! ! ! ! ! ! + + + + +------+------+ + Signature dtt: [id number] MO: 10/04/16 1442 Physician Self Edit
[2016-10-04 09:07] LABS: BASOPHIL % 0.2 %; EOSINOPHIL % 0.1 %; HEMOGLOBIN 11.1 g/dL (11.0-16.0); IMMATURE GRANULOCYTE # 0.2 K/uL (0.0-0.3); IMMATURE GRANULOCYTE % 0.7 %; LYMPHOCYTE # 0.7 K/uL (0.8-4.0); MCH 30.7 pg (27.0-34.0); MCHC 32.6 gm/dL (32.0-36.5); MCV 93.9 fl (83.0-98.0); MONOCYTE # 1.2 K/uL (0.0-1.0); MONOCYTE % 5.3 %; MPV 11.3 fl (9.4-12.4); NEUTROPHIL # (ANC) 20.9 K/uL (1.4-9.0); NEUTROPHIL % 90.7 %; NRBC % 0.1 /100WBC (0-0.00); PLATELET COUNT 210 K/uL (150-450); RBC 3.62 M/uL (3.50-5.50); RDW-CV 14.6 % (11.9-14.6)
[2016-10-04 09:30] LABS: INR - (THERAPEUTIC) 1.03 (0.92-1.07); PROTIME 10.8 SECONDS (9.8-11.4); PTT 20 SECONDS (25-32)
[2016-10-04 09:34] LABS: ALBUMIN 3.3 gm/dL (3.5-5.0); ALK PHOS 112 IU/L (33-138); ALT 73 IU/L (12-78); ANION GAP 19.5 (10.0-19.0); AST 51 IU/L (10-40); BLOOD UREA NITROGEN 49 mg/dL (6-24); CALCIUM 8.6 mg/dL (8.5-10.5); CHLORIDE 105 mMol/L (96-110); CO2 17 mMol/L (22-32); ESTIMATED GFR (MDRD EQUATION) 33; POTASSIUM 4.5 mMol/L (3.7-5.1); SODIUM 137 mMol/L (135-145); TOTAL BILIRUBIN 0.7 mg/dL (0.0-1.5)
[2016-10-04] MEDS ORDERED: LASIX20 M1 PO (12:19)
[2016-10-04] MEDS ORDERED: LEVEMIR FL100 UNIT/1 SUB-Q (12:19)
[2016-10-04] MEDS ORDERED: ZOCOR40 MG PO (12:19)
[2016-10-04] MEDS ORDERED: NEURONTIN100 MG PO (12:20)
[2016-10-04] MEDS ORDERED: LOPRESSOR25 MG PO (12:20)
[2016-10-04] MEDS ORDERED: GLYBURIDE5 MG PO (12:20)
[2016-10-04] MEDS ORDERED: ALDACTONE25 MG PO (12:21)
[2016-10-04] MEDS ORDERED: PRINIVIL (ZESTR20 MG PO (12:21)
[2016-10-04] MEDS ORDERED: THERAGRAN-M1 TAB PO (12:23)
[2016-10-04] MEDS ORDERED: JANUMET 50-5001 EACH PO (12:23)
[2016-10-04] MEDS ORDERED: VITAMIN B-121000 MCG PO (12:23)
[2016-10-04 14:20] LABS: BICARBONATE 21.8 mmol/L (18.0-23.0); LACTATE 3.4 mEq/L (0.50-1.60); PCO2 52 mmHg (35-45)
[2016-10-04 14:21] LABS: PO2 35 mmHg (80-90)
[2016-10-05 08:03] LABS: BASOPHIL % 0.2 %; HEMATOCRIT 31.4 % (37.0-53.0); HEMOGLOBIN 10.3 g/dL (11.0-16.0); IMMATURE GRANULOCYTE # 0.1 K/uL (0.0-0.3); IMMATURE GRANULOCYTE % 0.6 %; LYMPHOCYTE # 1.2 K/uL (0.8-4.0); LYMPHOCYTE % 7.1 %; MCH 30.4 pg (27.0-34.0); MCHC 32.8 gm/dL (32.0-36.5); MCV 92.6 fl (83.0-98.0); MONOCYTE # 1.2 K/uL (0.0-1.0); MPV 11.2 fl (9.4-12.4); NEUTROPHIL # (ANC) 14.6 K/uL (1.4-9.0); NEUTROPHIL % 85.1 %; NRBC % 0 /100WBC (0-0.00); PLATELET COUNT 173 K/uL (150-450); RBC 3.39 M/uL (3.50-5.50); RDW-CV 14.9 % (11.9-14.6)
[2016-10-05 08:04] LABS: WBC 17.1 K/uL (4.0-11.0)
[2016-10-05 08:19] LABS: ANION GAP 18.3 (10.0-19.0); CALCIUM 7.9 mg/dL (8.5-10.5); CREATININE 2.6 mg/dL (0.6-1.3); MAGNESIUM 1.9 mg/dL (1.8-2.6); PHOSPHORUS 4.3 mg/dL (2.5-4.9); POTASSIUM 4.3 mMol/L (3.7-5.1)
[2016-10-05 16:51] LABS: BILIRUBIN URINE NEGATIVE (NEGATIVE); BLOOD URINE 10 /UL (NEGATIVE); COLOR URINE YELLOW (YELLOW); GLUCOSE URINE NEGATIVE (NEGATIVE); KETONE URINE NEGATIVE (NEGATIVE); LEUKOCYTES URINE NEGATIVE /UL (NEGATIVE); NITRITE URINE NEGATIVE (NEGATIVE); PROTEIN URINE 30 mg/dL (NEGATIVE); TURBIDITY URINE CLEAR (CLEAR); UROBILINOGEN URINE NORMAL (NORMAL)
[2016-10-05 17:07] LABS: RBC URINE 0-2 #/HPF (NEGATIVE)
[2016-10-05 17:08] LABS: AMORPHOUS URINE 1+ (NEGATIVE); BACTERIA URINE MODERATE (NEGATIVE); EPITHELIAL URINE RARE #/HPF (NEGATIVE); MUCUS URINE 1+ (NEGATIVE)
[2016-10-05 17:09] LABS: GRANULAR CASTS URINE 0-2 #/LPF (NEGATIVE); HYALINE CAST URINE 0-2 #/LPF (NEGATIVE)
[2016-10-06 08:07] LABS: BASOPHIL % 0.2 %; EOSINOPHIL % 0.3 %; HEMATOCRIT 32.8 % (37.0-53.0); HEMOGLOBIN 10.6 g/dL (11.0-16.0); IMMATURE GRANULOCYTE # 0.1 K/uL (0.0-0.3); IMMATURE GRANULOCYTE % 0.4 %; LYMPHOCYTE # 1.1 K/uL (0.8-4.0); LYMPHOCYTE % 8.6 %; MCH 30.2 pg (27.0-34.0); MCHC 32.3 gm/dL (32.0-36.5); MCV 93.4 fl (83.0-98.0); MONOCYTE # 0.9 K/uL (0.0-1.0); MONOCYTE % 7.1 %; MPV 11.5 fl (9.4-12.4); NEUTROPHIL # (ANC) 10.8 K/uL (1.4-9.0); NEUTROPHIL % 83.4 %; NRBC % 0 /100WBC (0-0.00); PLATELET COUNT 180 K/uL (150-450); RBC 3.51 M/uL (3.50-5.50); RDW-CV 14.8 % (11.9-14.6)
[2016-10-06 08:20] LABS: ALBUMIN 2.6 gm/dL (3.5-5.0); CREATININE 1.8 mg/dL (0.6-1.3); PHOSPHORUS 3.3 mg/dL (2.5-4.9)
[2016-10-06 08:21] LABS: MAGNESIUM 2.1 mg/dL (1.8-2.6)
[2016-10-06 14:02] LABS: BILIRUBIN URINE NEGATIVE (NEGATIVE); BLOOD URINE 250 /UL (NEGATIVE); COLOR URINE YELLOW (YELLOW); GLUCOSE URINE 100 mg/dL (NEGATIVE); KETONE URINE NEGATIVE (NEGATIVE); LEUKOCYTES URINE 25 /UL (NEGATIVE); NITRITE URINE NEGATIVE (NEGATIVE); PROTEIN URINE 30 mg/dL (NEGATIVE); SPEC GRAVITY URINE 1.015 (1.003-1.035); TURBIDITY URINE 2+ (CLEAR); UROBILINOGEN URINE NORMAL (NORMAL)
[2016-10-06 14:22] LABS: BACTERIA URINE RARE (NEGATIVE); EPITHELIAL URINE NEGATIVE #/HPF (NEGATIVE); RBC URINE FULL FIELD #/HPF (NEGATIVE); WBC URINE 0-2 #/HPF (NEGATIVE)
[2016-10-06 14:25] LABS: CRYSTALS URINE URIC ACID (NEGATIVE)
[2016-10-07 04:52] LABS: BASOPHIL % 0.3 %; EOSINOPHIL # 0.1 K/uL (0.0-0.5); EOSINOPHIL % 0.9 %; HEMATOCRIT 31.8 % (37.0-53.0); HEMOGLOBIN 10.1 g/dL (11.0-16.0); IMMATURE GRANULOCYTE # 0.1 K/uL (0.0-0.3); IMMATURE GRANULOCYTE % 0.7 %; LYMPHOCYTE # 1.1 K/uL (0.8-4.0); LYMPHOCYTE % 11.2 %; MCH 30.2 pg (27.0-34.0); MCHC 31.8 gm/dL (32.0-36.5); MCV 95.2 fl (83.0-98.0); MONOCYTE # 0.7 K/uL (0.0-1.0); MONOCYTE % 7.3 %; MPV 11.1 fl (9.4-12.4); NEUTROPHIL # (ANC) 7.6 K/uL (1.4-9.0); NEUTROPHIL % 79.6 %; NRBC % 0 /100WBC (0-0.00); PLATELET COUNT 191 K/uL (150-450); RBC 3.34 M/uL (3.50-5.50); RDW-CV 14.7 % (11.9-14.6); WBC 9.6 K/uL (4.0-11.0)
[2016-10-07 05:14] LABS: ALBUMIN 2.4 gm/dL (3.5-5.0); ANION GAP 11.1 (10.0-19.0); CALCIUM 8.2 mg/dL (8.5-10.5); CREATININE 1.5 mg/dL (0.6-1.3); MAGNESIUM 2.2 mg/dL (1.8-2.6); POTASSIUM 4.1 mMol/L (3.7-5.1); TOTAL BILIRUBIN 0.6 mg/dL (0.0-1.5); TOTAL PROTEIN 6.4 g/dL (6.0-8.4)
[2016-10-08 03:18] LABS: BASOPHIL % 0.3 %; EOSINOPHIL # 0.2 K/uL (0.0-0.5); HEMATOCRIT 32.1 % (37.0-53.0); HEMOGLOBIN 10.1 g/dL (11.0-16.0); IMMATURE GRANULOCYTE % 0.4 %; LYMPHOCYTE # 1.7 K/uL (0.8-4.0); LYMPHOCYTE % 18.7 %; MCH 30.2 pg (27.0-34.0); MCHC 31.5 gm/dL (32.0-36.5); MCV 96.1 fl (83.0-98.0); MONOCYTE # 0.9 K/uL (0.0-1.0); MONOCYTE % 9.6 %; MPV 10.9 fl (9.4-12.4); NEUTROPHIL # (ANC) 6.1 K/uL (1.4-9.0); NRBC % 0 /100WBC (0-0.00); PLATELET COUNT 201 K/uL (150-450); RBC 3.34 M/uL (3.50-5.50); RDW-CV 14.6 % (11.9-14.6); WBC 8.9 K/uL (4.0-11.0)
[2016-10-08 03:39] LABS: ALBUMIN 2.5 gm/dL (3.5-5.0); ANION GAP 10.9 (10.0-19.0); CALCIUM 8.2 mg/dL (8.5-10.5); CREATININE 1.3 mg/dL (0.6-1.3); PHOSPHORUS 2.4 mg/dL (2.5-4.9); POTASSIUM 3.9 mMol/L (3.7-5.1)
[2016-10-09 04:06] LABS: ALBUMIN 2.4 gm/dL (3.5-5.0); ANION GAP 10.9 (10.0-19.0); CALCIUM 8.5 mg/dL (8.5-10.5); CREATININE 1.2 mg/dL (0.6-1.3); POTASSIUM 3.9 mMol/L (3.7-5.1)
[2016-10-10 06:04] LABS: ALBUMIN 2.4 gm/dL (3.5-5.0); ANION GAP 10.7 (10.0-19.0); BLOOD UREA NITROGEN 22 mg/dL (6-24); CALCIUM 8.6 mg/dL (8.5-10.5); CHLORIDE 107 mMol/L (96-110); CO2 29 mMol/L (22-32); CREATININE 1.1 mg/dL (0.6-1.3); ESTIMATED GFR (MDRD EQUATION) > 60; PHOSPHORUS 3.6 mg/dL (2.5-4.9); POTASSIUM 3.7 mMol/L (3.7-5.1); SODIUM 143 mMol/L (135-145)
[2016-10-10] MEDS ORDERED: AUGMENTIN 875-1 EACH PO (11:19)
[2016-10-10] MEDS ORDERED: ASPIRIN EC81 MG PO (11:20)
[2016-10-10] MEDS ORDERED: COREG12.5 MG PO (11:20)
[2016-10-10] MEDS ORDERED: NOVOLOG FL100 UNIT/1 SUB-Q (11:24)
[2016-10-10] MEDS ORDERED: PROTONIX40 MG PO (11:27)
[2016-10-10] MEDS ORDERED: NORVASC5 MG PO (11:30)
[2016-10-10] MEDS ORDERED: TYLENOL325 MG PO (11:43)
== END 2016-10-10 14:00 | disposition disaster alternative care site (69) | DRG 871 ==
LOC: GMED 08:19 → GPCU 10:51
PROVIDERS: Emergency Medicine; Family Medicine; Internal Medicine; Internal Medicine Interventional Cardiology; Internal Medicine Nephrology; Nurse Practitioner; ADMIT Internal Medicine
PROC: B54DZZZ Ultrasonography of Bilateral Lower Extremity Veins (ICD-10-PCS; principal; 2016-10-04)
PROC: 3E0F7HZ Introduction of Radioactive Substance into Respiratory Tract, Via Natural or Artificial Opening (ICD-10-PCS; 2016-10-05)
DX: A40.1 Sepsis due to streptococcus, group B (principal); I50.43 Acute on chronic combined systolic (congestive) and diastolic (congestive) heart failure; N17.0 Acute kidney failure with tubular necrosis; J96.01 Acute respiratory failure with hypoxia; R65.20 Severe sepsis without septic shock; I44.2 Atrioventricular block, complete; N18.3 Chronic kidney disease, stage 3 (moderate); J18.9 Pneumonia, unspecified organism; I13.0 Hypertensive heart and chronic kidney disease with heart failure and stage 1 through stage 4 chronic kidney disease, or unspecified chronic kidney disease; L03.115 Cellulitis of right lower limb; Z68.41 Body mass index [BMI] 40.0-44.9, adult; J90 Pleural effusion, not elsewhere classified; E11.22 Type 2 diabetes mellitus with diabetic chronic kidney disease; E11.65 Type 2 diabetes mellitus with hyperglycemia; E66.01 Morbid (severe) obesity due to excess calories; E78.5 Hyperlipidemia, unspecified
CPT/HCPCS: A9539; A9540; C9113; J0295; J0461; J1170; J1644; J1940; J2020; J2060; J2185; J2405; J2543; J3370; J7030; J7040; J7050; J7060

== ENCOUNTER → 2016-10-24 | Outpatient (CLI) | payer MEDICARE, OTHER | LOC: LGSMG 11:40 | DX: N17.9 Acute kidney failure, unspecified (principal) ==

== ENCOUNTER → 2016-10-31 | Outpatient (CLI) | payer MEDICARE, OTHER ==
[2016-10-31 14:55] LABS: CALCIUM 9.1 mg/dL (8.5-10.5); CREATININE 2.6 mg/dL (0.6-1.3)
== END | disposition disaster alternative care site (69) ==
LOC: LNHI 14:28
PROVIDERS: Internal Medicine Interventional Cardiology
DX: A41.9 Sepsis, unspecified organism (principal); I44.2 Atrioventricular block, complete; I50.43 Acute on chronic combined systolic (congestive) and diastolic (congestive) heart failure

== ENCOUNTER → 2016-11-23 | Outpatient (CLI) | payer MEDICARE, OTHER | END | disposition disaster alternative care site (69) | LOC: LGSMG 13:58 | DX: N18.2 Chronic kidney disease, stage 2 (mild) (principal); E11.9 Type 2 diabetes mellitus without complications; R31.9 Hematuria, unspecified; I10 Essential (primary) hypertension ==